=== PATIENT | male | born 1940 | race Two or more races ===

== ENCOUNTER 2024-05-14 06:56 | Outpatient (RCR) | payer OTHER, SELFPAY | END 2024-05-14 23:59 | disposition home or self-care (01) | LOC: RPT 06:56 | PROVIDERS: ATTENDING PHYSICIAN Student in an Organized Health Care Education/Training Program | DX: M48.05 Spinal stenosis, thoracolumbar region (principal) | CPT/HCPCS: 97110; 97162; 97535 ==

== ENCOUNTER 2024-06-17 13:58 | Outpatient (RCR) | payer OTHER, SELFPAY | END 2024-06-17 23:59 | disposition home or self-care (01) | LOC: RPT 13:58 | PROVIDERS: ATTENDING PHYSICIAN Student in an Organized Health Care Education/Training Program | DX: M48.05 Spinal stenosis, thoracolumbar region (principal) | CPT/HCPCS: 97010; 97110 ==

== ENCOUNTER 2024-07-17 12:43 | Outpatient (RCR) | payer OTHER, SELFPAY | END 2024-07-17 23:59 | disposition home or self-care (01) | LOC: RPT 12:43 | PROVIDERS: ATTENDING PHYSICIAN Student in an Organized Health Care Education/Training Program | DX: M48.05 Spinal stenosis, thoracolumbar region (principal) | CPT/HCPCS: 97010; 97110 ==

== ENCOUNTER 2024-07-31 13:41 | Outpatient (RCR) | payer OTHER, SELFPAY | END 2024-07-31 23:59 | disposition home or self-care (01) | LOC: RPT 13:41 | PROVIDERS: ATTENDING PHYSICIAN Student in an Organized Health Care Education/Training Program | DX: M48.05 Spinal stenosis, thoracolumbar region (principal); M62.81 Muscle weakness (generalized); Z73.6 Limitation of activities due to disability | CPT/HCPCS: 97110 ==

== ENCOUNTER 2024-08-03 03:01 | Observation (INO) | payer OTHER, SELFPAY ==
[2024-08-02 21:06] VITALS: BP 124/65; BMI 26.7
[2024-08-02 21:07] VITALS: BP 124/65
[2024-08-02 22:14] VITALS: BP 165/80
[2024-08-02 22:16] LABS: % Basophils 0.4 % (0-2); % Eosinophils 0.9 % (0-6); % Immature Granulocytes 0.2 % (0-0.5); % Lymphocytes 14.7 % (20.5-51.1); % Monocytes 11.6 % (1.7-9.3); % Neutrophils 72.2 % (42.2-75.2); Absolute Eosinophils 0.1 10^3/uL (0-0.7); Absolute Lymphocytes 0.8 10^3/uL (1.2-3.4); Absolute Monocytes 0.6 10^3/uL (0.1-0.6); Hematocrit 36.9 % (39.0-52.0); Hemoglobin 12.5 g/dL (13.0-18.0); Mean Corp Hgb Conc. 33.9 g/dL (33.0-37.0); Mean Corpuscular Hgb 30.3 pg (27.0-31.0); Mean Corpuscular Volume 89.3 fL (80.0-94.0); Mean Platelet Volume 10.3 fL (7.4-10.4); Nucleated Red Blood Cells % 0 % (-); Platelet Count 168 10^3/uL (130-400); Red Blood Cell Count 4.13 10^6/uL (4.70-6.10); Red Cell Dist. Width 13.1 % (11.5-14.5); White Blood Cell Count 5.5 10^3/uL (4.8-10.8)
[2024-08-02 22:17] LABS: Urine Albumin Trace (Neg - Trace); Urine Bilirubin Negative (Negative); Urine Character Clear (Clear); Urine Color Yellow; Urine Glucose 3+ (Negative); Urine Ketone Trace (Negative); Urine Leukocyte Negative (Negative); Urine Nitrite Negative (Negative); Urine Occult Blood Negative (Negative); Urine Specific Gravity 1.015 (<1.030); Urine Urobilinogen 3+ (Neg - 1+)
[2024-08-02 22:27] LABS: COVID-19 Antigen Positive (Negative)
[2024-08-02 22:29] LABS: Lactic Acid 2.5 mmol/L (0.7-2.0)
[2024-08-02 22:32] LABS: ALT (SGPT) 47 U/L (0-50); AST (SGOT) 51 U/L (17-59); Albumin 4.4 g/dl (3.5-5.0); Alkaline Phosphatase 47 U/L (38-126); Blood Urea Nitrogen 10 mg/dl (9-20); Calcium 9.5 mg/dl (8.4-10.2); Carbon Dioxide 25 mmol/L (22-30); Chloride 99 mmol/L (98-107); Estimated Creatinine Clearance 99 ml/min; Glucose 184 mg/dl (70-99); Potassium 4.4 mmol/L (3.5-5.1); Sodium 138 mmol/L (135-145); Total Bilirubin 0.5 mg/dl (0.2-1.3); Total Protein 6.9 g/dl (6.3-8.2); eGFR > 60.00
[2024-08-02] MEDS: TYLENOL 1000 MG PO (22:33)
[2024-08-02] MEDS: NSS 500 IV (22:33)
[2024-08-02 23:00] VITALS: BP 134/70
[2024-08-03] VITALS (9 sets, daily range): BP systolic 103–129; BP diastolic 56–81; BMI 26.2
--- NOTE | 2024-08-03 01:06 | ED.GENMED ---
History of Present Illness
General
Chief Complaint: Weakness
Source: patient and family
Time Seen by Provider: 08/02/24 21:29
History of Present Illness
History of Present Illness:
83-year-old male presents feeling profoundly weak. States he had little bit of scratchy throat last night and today woke up feeling weak and it got worse as the day went on. He could barely get up at home. Did not note a fever but apparently was
recently at a [employer] event. Denies shortness of breath.
Past History
Past History
ED Past Medical History: Arrthythmia (Atrial fibrillation), GERD, HTN and NIDDM
Phy Exam
Physical Exam
Physical Exam:
CONSTITUTIONAL Vital signs reviewed, Patient alert and oriented to person, place and time.
HEAD atraumatic, normocephalic.
EYES eyelids normal to inspection, Extraocular muscles intact, Conjunctiva normal, Sclera normal.
NECK normal range of motion, Trachea midline, no jugular venous distention.
RESP no respiratory distress
BACK No obvious deformities
UPPER EXTREMITY Gross Range of motion normal, gross motor strength normal
LOWER EXTREMITY Gross range of motion normal, Gross motor strength normal
NEURO Speech normal, No focal motor deficits include, Mery coma scale 15, Memory normal, Cranial Nerves intact to screening exam.
SKIN Skin warm, dry, and normal in color.
Course
Orders/Labs/Results
Orders:
Orders
08/02/24 21:14
Electrocardiogram (*1) Urgent
Reason for Study: Other
Other Reason for Exam: Possible Sepsis
Cardiac Monitoring- Treatment ONCE
IV Insert/Care/Rem.- Treatment PRN
O2 Therapy [RESP] Urgent
Titrate/Wean O2 to maintain O2 sat greater than (%): 93
Special Instructions: TO MAINTAIN CONTINUOUS O2 SATS > OR = 93%
Pulse Ox/cont/shift [RESP] Urgent
Quantity: 1
Special Instructions: CONTINUOUS
08/02/24 21:51
Electrocardiogram (*1) Urgent
Reason for Study: Fatigue / Weakness
EKG- Treatment ONCE
Chest [CR Chest - 2 Views ] Urgent
Comment:
Reason For Exam: weakness
08/02/24 21:53
COVID-19 Antigen Urgent
Source: Nasal Swab
Complete Blood Count/With Diff Urgent
Comprehensive Metabolic Panel Urgent
Lactic Acid Urgent
Urinalysis Reflex To Culture Urgent
Date Specimen was Collected: 08/02/24
Time Specimen was Collected: 21:52
Influenza A+B Rapid Molecular Urgent
JOHN Source: Nasal Swab
Specimen Description:
Date Specimen was Collected: 08/02/24
Time Specimen was Collected: 21:52
08/02/24 22:28
0.9% Sodium Chloride 500 ml [Nss] 500 ml IV BOLUS
Acetaminophen [Tylenol] 1,000 mg PO NOW STA
Abnormal Lab Results
08/02/24
21:53
RBC 4.13 L 10^6/uL
(4.70-6.10)
Hgb 12.5 L g/dL
(13.0-18.0)
Hct 36.9 L %
(39.0-52.0)
Absolute Lymphs (auto) 0.8 L 10^3/uL
(1.2-3.4)
Lymphocytes % 14.7 L %
(20.5-51.1)
Monocytes % 11.6 H %
(1.7-9.3)
Creatinine 0.6 L mg/dL
(0.7-1.3)
Glucose 184 H mg/dl
(70-99)
Lactic Acid 2.5 H mmol/L
(0.7-2.0)
Urine Ketones Trace A
(Negative)
Urine Urobilinogen 3+ A
(Neg - 1+)
Urine Glucose 3+ A
(Negative)
SARS-CoV-2 Antigen Positive A
(Negative)
08/02/24 21:53
08/02/24 21:53
Vital Signs
Initial and Last Documented VS:
Initial Vital Signs
Temp Pulse Resp BP Pulse Ox
100.3 F 83 20 124/65 96
08/02/24 21:06 08/02/24 21:06 08/02/24 21:06 08/02/24 21:06 08/02/24 21:06
Last Documented Vital Signs
Temp Pulse Resp BP Pulse Ox
100.3 F 74 22 109/59 93
08/02/24 21:06 08/03/24 01:15 08/03/24 01:15 08/03/24 01:00 08/03/24 01:15
MDM/Problems Addressed
MDM/Problems Addressed:
COVID-19, weakness, lactic acidosis, hyperglycemia
*Radiology
Radiology exam reviewed: all reviewed NAD by ED Provider
*Pulse Oximetry
Patient hypoxic: no
*Critical Care Note
Total Time (30-74mins, 75-104mins- exclusive of procedures): Not Applicable
Data Reviewed
Source: patient, significant other and family
Prescriptions/Medications Considered But Not Given:
Considered antibiotics but COVID-positive
Patient Management
Discussion with other providers: Hospitalist
Escalation/DeEscalation of care consider admission/obs:
Attempted IV fluids and Tylenol and reassessment. However on reassessment the patient is unable to get out of bed due to profound weakness. states that she cannot lift them at home. Given his age, history of medical conditions and profound
weakness, admit.
ED Attending Note
-
Portions of this chart may have been created with voice recognition software.� Occasional wrong word or��sound alike� substitutions may have occurred due to the inherent limitations of voice recognition software.
Discharge Plan
Departure
Patient Disposition: Admit
Date of Disposition: 08/03/24
Time of Disposition: 01:45
Admit to: Med/Surg
Presentation/result/management discussed w/ accepting MD/DO: Hospitalist
Discharge Problem:
COVID-19, Acidosis, lactic
Prescriptions:
No Action
cyanocobalamin (vitamin B-12) [Vitamin B-12] 1,000 mcg Tablet
1,000 mcg PO DAILY
fenofibrate micronized [Lofibra] 134 mg Capsule
134 mg PO DAILY
metoprolol tartrate [Lopressor] 50 mg Tablet
50 mg PO BID
omeprazole [Prilosec] 20 mg Capsule,Delayed Release(Dr/Ec)
20 mg PO DAILY
rosuvastatin [Crestor] 40 mg Tablet
40 mg PO HS
metformin 1,000 mg Tablet Extended Release 24hr
1,000 mg PO BID
Creon 24,000-76,000 -120,000 unit Capsule,Delayed Release(Dr/Ec)
2 cap PO TID
Eliquis 5 mg Tablet
5 mg PO BID
Vitamin D3
vitamin E
Referrals:
UNKNOWN - PT DOES,NOT KNOW [Family Provider] -
Interventions
Interventions:
*Risk Screen - Suicide Last Done: 08/02/24 21:06
*General Assessment Last Done: 08/02/24 21:06
*Neglect/Abuse Screening Last Done: 08/02/24 21:06
*ED COVID-19 Vaccine History Last Done: 08/02/24 21:06
ED- Cardiac Assessment Last Done: 08/02/24 21:31
ED- Neurological Assessment Last Done: 08/02/24 21:31
ED- Pulmonary Assessment Last Done: 08/02/24 21:31
Discharge Date and Time
Print Language: GREEK
--- NOTE | 2024-08-03 01:39 | HPS.HSE ---
Family Physician
-
Family Physician: NOT KNOW UNKNOWN - PT DOES
Chief Complaint
-
Weakness with ambulatory dysfunction.
History of Present Illness
This is a 83-year-old with past medical history of atrial fibrillation, diabetes, hyperlipidemia and hypertension presenting to the emergency department with 1 day of weakness and difficulty getting around.
Patient reports that he started having a nonproductive cough for about 2 days ago. He has had about 2 days of runny nose. Arose with scrachy throat today. Throughout the day he became weaker and now unable to get up. He denies shortness of
breath. He denies chest pain. Unclear whether he was having fevers at home. He specifically denies any vomiting or diarrhea. Had decreased p.o. intake today. Denies any other focal symptoms.
On arrival in the ED he had a low-grade temp of 100.3. Blood pressure was 109/59, pulse 74, oxygen saturation was 90 to 95% on room air. His chest x-ray shows no acute infiltrates. His CBC was unremarkable. Chemistries were was unremarkable.
Lactic acid was 2.5, UA was negative for an acute infection. COVID-19 was positive.
Medical History
Past Medical History
Past Medical History: Reports Arrhythmia (afib), GERD, Hypercholesterolemia and NIDDM
Past Surgical History: Reports None
Social History
Tobacco: Non-smoker
Alcohol: None
Drug: None
Personal:
Living: With Family
Employment: Retired
Family History
Family History: Not pertinent
Allergies / Home Medications
Allergies reflects when Allergies were last updated in [employer].
Home Medications with original date entered in [employer]
Allergy/Medication List:
Allergies
Allergy/AdvReac Type Severity Reaction Status Date / Time
Penicillins Allergy Unknown Unknown Verified 08/02/24 21:09
Sulfa (Sulfonamide Allergy Unknown Unknown Verified 08/02/24 21:09
Antibiotics)
Home Medications
Vitamin D3 08/02/24
apixaban 5 mg tablet (Eliquis) 5 mg PO BID 08/02/24
cyanocobalamin (vitamin B-12) 1,000 mcg tablet (Vitamin B-12) 1,000 mcg PO DAILY 08/02/24
fenofibrate micronized 134 mg capsule 134 mg PO DAILY 08/02/24
ogftjh-hcemqzhr-oecjrnm 24,000-76,000-120,000 unit capsule,delayed rel (Creon) 2 cap PO TID 08/02/24
metformin 1,000 mg tablet,extended release 24hr (osmotic) 1,000 mg PO BID 08/02/24
metoprolol tartrate 50 mg tablet (Lopressor) 50 mg PO BID 08/02/24
omeprazole 20 mg capsule,delayed release 20 mg PO DAILY 08/02/24
rosuvastatin 40 mg tablet (Crestor) 40 mg PO HS 08/02/24
vitamin E 08/02/24
Review of Systems
-
History Source: Patient
Constitutional: Reports Fatigue
EENT: Reports Sore Throat and Runny Nose
Respiratory: Reports No Symptoms
Cardiac: Reports No Symptoms
Abdomen/GI: Reports No Symptoms
: Reports No Symptoms
Musculoskeletal: Reports No Symptoms
Skin: Reports No Symptoms
Neurological: Reports Weakness
Endocrine: Reports No Symptoms
Hematologic/Lymphatic: Reports No Symptoms
Psych: Reports No Symptoms
Physical Exam
Vital Signs
Vital Signs
Temp Pulse Resp BP Pulse Ox
100.3 F 74 22 109/59 93
08/02/24 21:06 08/03/24 01:15 08/03/24 01:15 08/03/24 01:00 08/03/24 01:15
Physical Exam
General: Well Developed, Well Nourished, Comfortable and Fever
HEENT: NormoCephalic, Anicteric, Moist mucous membranes and Atraumatic
Respiratory: Clear
Cardiac: S1/S2 and Regular Rhythm
Breast: Deferred by me
GI: Soft, Non Tender, Non Distended and Normal Bowel Sounds
Rectal: Deferred by Provider
Genito-urinary: Deferred by me
Musculoskeletal: No Clubbing, No Cyanosis and No Edema
Skin: Warm
Neuro: AO x 3
Hematologic/Lymphatic: No Lymphadenopathy
Psych: Calm
Laboratory Results
-
08/02/24 21:53
08/02/24 21:53
Laboratory Results
Lactic Acid 2.5 mmol/L (0.7-2.0) H 08/02/24 21:53
Total Bilirubin 0.5 mg/dl (0.2-1.3) 08/02/24 21:53
AST 51 U/L (17-59) 08/02/24 21:53
ALT 47 U/L (0-50) 08/02/24 21:53
Alkaline Phosphatase 47 U/L (38-126) 08/02/24 21:53
Data Reviewed
-
Diagnostic Radiology: Image Personally Visualized and interpreted
Lab Data: Labs Reviewed by me
Old Records: Reviewed
Impression/Plan
-
IMPRESSION:
83-year-old with history of diabetes, hyperlipidemia, A-fib who presents to the emergency department with weakness and found to be febrile. He has a prodromal episodes of cough runny nose and sore throat prior to coming in. Found to be
COVID-positive in the ED. Labs were otherwise unremarkable except for lactic acid of 2.5. UA was negative for any infection.
PLAN:
1.COVID 19 Infection - Possibly 2 days of symptoms. Low grade temps. Not requiring supplemental oxygen. No GI losses. Unable to ambulate due to weakness.
- admit to med surg
- recommended paxlovid but patient declined and wanted to speak with daughter
- no indication for steroids or remdesivir
- supportive care with antipyretics, antitussives
- gently hydration overnight
- monitor for oxygen requirement changes that might necessitate med changes.
- PT eval
2. AFIB - Currently rate controlled
- continue metoprolol 50 bid
- ac with eliquis q 12
3. DM II
- hold metformin
- sliding scale insulin for now
DVT PPX - On apixaban
Code Status - Full Code
[2024-08-03] MEDS: LR 1000 IV (03:27)
[2024-08-03 07:13] LABS: Glucose - Point of Care 133 mg/dl (70-99)
[2024-08-03 07:30] LABS: Blood Urea Nitrogen 8 mg/dl (9-20); Calcium 9.7 mg/dl (8.4-10.2); Carbon Dioxide 25 mmol/L (22-30); Chloride 100 mmol/L (98-107); Estimated Creatinine Clearance 99 ml/min; Glucose 123 mg/dl (70-99); Magnesium 1.5 mg/dl (1.6-2.3); Sodium 142 mmol/L (135-145); eGFR > 60.00
--- NOTE | 2024-08-03 08:48 | W.PN.HOSP.TC ---
Today's Communication/Plan
-
see PN
Assessment / Plan
Assessment / Plan
83yo M with PMHx of Afib, HTN, HLD, pancreatic insufficiency came with 2 days of cough and progressive weakness, found COVID-19. Next day after admission, patient c/o significant weakness and was mildly confued on assessment
A/P:
#Sepsis (COVID-19 with confusion), viral
follow inflammatory markers
s/p hydration
Chest XR without overt signs of pneumonia, with perisistent cough - will do CT chest
check procalcitonin
follow lactate
continius pulse O2
On admission did not agree for Paxlovid, but with ELiquis - risk would overweight benefit due to interaction
Will consider Molnupiravir vs steroids and remdesivir depensing on CT chest findings
Tylenol, mucinex, Tessalon
Isolation
#Afib, unspecisied
cont Eliquis
telemetry
#Essential HTN
#Pancreatic insufficiency
cont home meds
#Hypomagnesemia
replete and follow
DVT ppx on ELiquis
FUll code
I have spent at least 57min reviewing chart, test results and direct patient care
Anticipated Discharge: > 48 hours
Subjective/Interval History
-
Date of Service: August 03, 2024
Objective Data
-
Labs:
Laboratory Results
08/02/24 08/02/24 08/03/24
21:22 21:53 05:27
WBC Cancelled 5.5
Hgb Cancelled 12.5 L
Hct Cancelled 36.9 L
Plt Count Cancelled 168
Sodium Cancelled 138 142
Potassium Cancelled 4.4 4.0
Chloride Cancelled 99 100
Carbon Dioxide Cancelled 25 25
BUN Cancelled 10 8 L
Creatinine Cancelled 0.6 L 0.6 L
Glucose Cancelled 184 H 123 H
Calcium Cancelled 9.5 9.7
Total Bilirubin Cancelled 0.5
AST Cancelled 51
ALT Cancelled 47
Alkaline Phosphatase Cancelled 47
Vital Signs:
Vital Signs
Temp Pulse Resp BP Pulse Ox
98.4 F 105 18 129/81 96
08/03/24 07:00 08/03/24 07:00 08/03/24 07:00 08/03/24 07:00 08/03/24 07:00
I&O
08/02/24 08/03/24 08/04/24
06:59 06:59 06:59
Intake Total 325 / 325
Output Total 200 / 200
Balance 125 / 125
Review of Systems
-
Unable to obtain full review of systems at this time due to: Acuity
History Source: Patient
Physical Exam
-
General: Respiratory Distress
HEENT: Moist Mucous Membranes
Respiratory: Clear to Auscultation
Cardiac: Regular Rhythm and S1/S2
GI: Soft, Nontender and Nondistended
Genito-urinary: No Costovertebral Tender
Musculoskeletal: No Clubbing, No Cyanosis and No Edema
Neuro: Awake, Alert and Oriented
Psych: Confused
[2024-08-03] MEDS: MAGNESIUM SULFATE 100 IV (09:10)
[2024-08-03] MEDS: VITAMIN B-12 1000 MCG PO (09:12)
[2024-08-03] MEDS: PROTONIX 40 MG PO (09:12)
[2024-08-03] MEDS: ELIQUIS 5 MG PO ×2 (09:13→21:35)
[2024-08-03] MEDS: ZENPEP DELAYED RELEASE CAPSULE 2 CAPSULE PO ×3 (09:15→17:41)
[2024-08-03] MEDS: TRICOR 145 MG PO (09:15)
[2024-08-03] MEDS: MUCINEX 1200 MG PO ×2 (09:16→21:34)
[2024-08-03] MEDS: LOPRESSOR 50 MG PO ×2 (09:16→21:34)
[2024-08-03 09:37] LABS: LDH 182 U/L (120-246)
[2024-08-03 09:42] LABS: Lactic Acid 2.1 mmol/L (0.7-2.0)
[2024-08-03 09:45] LABS: NT-proBNP 417 pg/ml
[2024-08-03 09:50] LABS: Erythrocyte Sed Rate 23 mm/hour (0-20)
[2024-08-03 10:08] LABS: Procalcitonin 0.08 ng/ml (0.0-0.25)
[2024-08-03 10:12] LABS: Ferritin 43.5 ng/ml (17.9-464.0)
[2024-08-03 12:38] LABS: Glucose - Point of Care 175 mg/dl (70-99)
[2024-08-03] MEDS: D5LR 1000 IV (13:11)
[2024-08-03 13:22] LABS: Glycohemoglobin (HgbA1c) 8.5 % (4.0-5.6)
--- NOTE | 2024-08-03 13:32 | CM ---
Patient seen at bedside with Mildred.
CM role explained.
DX: Covid 19 infection.
PMH: AFIB, HTN, pancreatic insufficiency, DM
CT SCAN-1. Clear lungs, without evidence of lobar pneumonia, pleural effusion, or significant pulmonary nodule.
answered questions. stated patient was going to outpatient therapy 2x here for 'back issues'
PLOF: Independent with walker, was not driving.
Await PT eval. PT unable to see patient today as he was weak.
Discussed options with . SNF/HH
PCP: Jesse Pham ([facility])
Pharmacy: [facility]
PLAN: Discharge when medically stable. Await PT eval.
[2024-08-03 14:18] LABS: Venous Blood Gas B.E. 0.3 mmol/L (-4 to +4); Venous Blood Gas HCO3 24.6 mmol/L (22-27); Venous Blood Gas O2 Sat % 90.1 %; Venous Blood Gas pCO2 38 mmHg (35-48); Venous Blood Gas pH 7.42 (7.32-7.43); Venous Blood Gas pO2 58 mmHg (30-50)
--- NOTE | 2024-08-03 14:26 | PTCARENOTE ---
Patient too weak to sit up at side of bed. Patient maintained on bedrest, softcare overlay applied. Patient has no appetite, ate 1/2 banana, tolerating po Liquids-patient is a feed at present due to weakness. Family at bedside.
[2024-08-03] MEDS: MOLNUPIRAVIR (EUA) 800 MG PO ×2 (14:39→21:34)
[2024-08-03 17:36] LABS: Glucose - Point of Care 174 mg/dl (70-99)
[2024-08-03] MEDS: NOVOLOG FLEXPEN-LOW RESISTANCE 1 UNITS SC (17:41)
[2024-08-03 21:26] LABS: Glucose - Point of Care 174 mg/dl (70-99)
[2024-08-03] MEDS: VIBRAMYCIN 100 MG PO (21:35)
[2024-08-03] MEDS: CRESTOR 40 MG PO (21:35)
[2024-08-04] VITALS (8 sets, daily range): BP systolic 108–126; BP diastolic 55–69; PULSE 78
[2024-08-04] MEDS: TYLENOL 650 MG PO ×2 (03:25→18:06)
[2024-08-04] MEDS: D5LR 1000 IV (05:11)
[2024-08-04 06:53] LABS: % Basophils 0.3 % (0-2); % Eosinophils 0.3 % (0-6); % Immature Granulocytes 0.3 % (0-0.5); % Lymphocytes 23.9 % (20.5-51.1); % Monocytes 13.7 % (1.7-9.3); % Neutrophils 61.5 % (42.2-75.2); Absolute Lymphocytes 0.9 10^3/uL (1.2-3.4); Absolute Monocytes 0.5 10^3/uL (0.1-0.6); Absolute Neutrophils 2.3 10^3/uL (1.4-6.5); Hematocrit 34.8 % (39.0-52.0); Hemoglobin 12.1 g/dL (13.0-18.0); Mean Corp Hgb Conc. 34.8 g/dL (33.0-37.0); Mean Corpuscular Hgb 30.3 pg (27.0-31.0); Mean Platelet Volume 10.5 fL (7.4-10.4); Nucleated Red Blood Cells % 0 % (-); Platelet Count 162 10^3/uL (130-400); Red Cell Dist. Width 13.1 % (11.5-14.5); White Blood Cell Count 3.7 10^3/uL (4.8-10.8)
[2024-08-04 07:00] LABS: ALT (SGPT) 53 U/L (0-50); AST (SGOT) 87 U/L (17-59); Alkaline Phosphatase 40 U/L (38-126); Blood Urea Nitrogen 12 mg/dl (9-20); Carbon Dioxide 21 mmol/L (22-30); Chloride 100 mmol/L (98-107); Estimated Creatinine Clearance 99 ml/min; Glucose 175 mg/dl (70-99); Potassium 4.2 mmol/L (3.5-5.1); Sodium 136 mmol/L (135-145); Total Bilirubin 0.6 mg/dl (0.2-1.3); Total Protein 6.7 g/dl (6.3-8.2); eGFR > 60.00
[2024-08-04 07:03] LABS: Glucose - Point of Care 171 mg/dl (70-99)
[2024-08-04] MEDS: ELIQUIS 5 MG PO ×2 (09:10→21:00)
[2024-08-04] MEDS: VITAMIN B-12 1000 MCG PO (09:10)
[2024-08-04] MEDS: VIBRAMYCIN 100 MG PO ×2 (09:10→21:00)
[2024-08-04] MEDS: ZENPEP DELAYED RELEASE CAPSULE 2 CAPSULE PO ×3 (09:10→16:49)
[2024-08-04] MEDS: PROTONIX 40 MG PO (09:10)
[2024-08-04] MEDS: MUCINEX 1200 MG PO ×2 (09:10→21:00)
[2024-08-04] MEDS: TRICOR 145 MG PO (09:11)
[2024-08-04] MEDS: LOPRESSOR 50 MG PO ×2 (09:11→21:00)
[2024-08-04] MEDS: MOLNUPIRAVIR (EUA) 800 MG PO ×2 (09:11→21:00)
[2024-08-04] MEDS: NOVOLOG FLEXPEN-LOW RESISTANCE 1 UNITS SC (09:12)
--- NOTE | 2024-08-04 12:06 | W.PN.HOSP.TC ---
Today's Communication/Plan
-
PT/OT in AM for dispo and d/c
Assessment / Plan
Assessment / Plan
83yo M with PMHx of Afib, HTN, HLD, pancreatic insufficiency came with 2 days of cough and progressive weakness, found COVID-19. Next day after admission, patient c/o significant weakness and was mildly confued on assessment
A/P:
#Sepsis (COVID-19 with confusion), viral
follow inflammatory markers
s/p hydration
No pneumonia on CT, no hypoxia
continues pulse O2
On admission did not agree for Paxlovid, but with Eliquis - risk would overweight benefit due to interaction
Molnupiravir
Tylenol, mucinex, Tessalon
Isolation
#Afib, unspecisied
cont Eliquis
telemetry
#Essential HTN
#Pancreatic insufficiency
cont home meds
#Hypomagnesemia
replete and follow
DVT ppx on ELiquis
FUll code
I have spent at least 37min reviewing chart, test results and direct patient care
Anticipated Discharge: Within 24 hours
Subjective/Interval History
-
Date of Service: August 04, 2024
Objective Data
-
Labs:
Laboratory Results
08/04/24
05:42
WBC 3.7 L
Hgb 12.1 L
Hct 34.8 L
Plt Count 162
Sodium 136
Potassium 4.2
Chloride 100
Carbon Dioxide 21 L
BUN 12
Creatinine 0.6 L
Glucose 175 H
Calcium 9.0
Total Bilirubin 0.6
AST 87 H
ALT 53 H
Alkaline Phosphatase 40
Vital Signs:
Vital Signs
Temp Pulse Resp BP Pulse Ox
97.5 F 74 16 108/60 94
09/17/24 07:00 08/04/24 09:11 08/04/24 07:00 08/04/24 09:11 08/04/24 07:00
I&O
08/03/24 08/04/24 08/05/24
06:59 06:59 06:59
Intake Total 325 / 325 1840 / 1840
Output Total 200 / 200 825 / 825
Balance 125 / 125 1015 / 1015
Review of Systems
-
History Source: Patient
All other systems: Reviewed and negative
Physical Exam
-
General: No Apparent Distress
HEENT: Normocephalic
Respiratory: Clear to Auscultation
Cardiac: Regular Rhythm
GI: Soft, Nontender and Nondistended
Neuro: Awake, Alert, Oriented and AO x 3
Psych: Calm
--- NOTE | 2024-08-04 12:47 | CM ---
Addendum entered by Bernadette Moreno 08/04/24 14:54:
IMM explained & signed. In chart
Original Note:
Met with patient, and daughter Raeann.
Covid + - more alert today, conversing.
Discussed discharge planning & PT recommendations Home PT vs. SNF.
Options reviewed with family.
Patient declines SNF - would like [facility].
tt liaison from [facility] & referral placed in care port.
PLAN: Patient declines SNF, home with visiting nurse.
--- NOTE | 2024-08-04 13:15 | VNURNOTE ---
Home Health Liaison spoke with patient's daughter Raeann to discuss [facility] nurse/therapy, visits, schedule and homebound status. She and patient's spouse were at the bedside and agreeable and understand that visits at home will be 2-3 x per week to
assess and teach medical management.
[facility] contact information provided. Patient and family aware that [facility] will contact them for start of care in 1-2 days after discharge from .
[facility] referral completed in Care Port.
[2024-08-04 13:47] LABS: Glucose - Point of Care 238 mg/dl (70-99)
[2024-08-04] MEDS: NOVOLOG FLEXPEN-LOW RESISTANCE 2 UNITS SC (13:48)
[2024-08-04 16:55] LABS: Glucose - Point of Care 256 mg/dl (70-99)
[2024-08-04] MEDS: NOVOLOG FLEXPEN-LOW RESISTANCE 3 UNITS SC (18:01)
[2024-08-04] MEDS: CRESTOR 40 MG PO (21:23)
[2024-08-04 22:07] LABS: Glucose - Point of Care 222 mg/dl (70-99)
[2024-08-05 03:16] VITALS: BP 106/58
--- NOTE | 2024-08-05 04:02 | DOWNTIME ---
There was a [employer] Downtime on 08/05/2024 from 0100 to 08/05/2024 at 0300. Downtime documentation of patient's care, including medication administrations, has been reconciled in the electronic record per guidelines. Refer to the
patient's paper chart under the miscellaneous tab to see printed paper medication records and downtime forms.
[2024-08-05 07:00] VITALS: BP 118/66
[2024-08-05 07:15] LABS: Glucose - Point of Care 157 mg/dl (70-99)
[2024-08-05] MEDS: ZENPEP DELAYED RELEASE CAPSULE 2 CAPSULE PO ×2 (09:32→12:54)
[2024-08-05] MEDS: ELIQUIS 5 MG PO (09:32)
[2024-08-05] MEDS: PROTONIX 40 MG PO (09:32)
[2024-08-05] MEDS: VITAMIN B-12 1000 MCG PO (09:32)
[2024-08-05] MEDS: VIBRAMYCIN 100 MG PO (09:33)
[2024-08-05] MEDS: MUCINEX 1200 MG PO (09:33)
[2024-08-05] MEDS: TRICOR 145 MG PO (09:33)
[2024-08-05] MEDS: LOPRESSOR 50 MG PO (09:33)
[2024-08-05] MEDS: MOLNUPIRAVIR (EUA) 800 MG PO (09:33)
[2024-08-05] MEDS: NOVOLOG FLEXPEN-LOW RESISTANCE 1 UNITS SC (09:34)
[2024-08-05 11:00] VITALS: BP 105/58
[2024-08-05 11:48] LABS: Glucose - Point of Care 270 mg/dl (70-99)
--- NOTE | 2024-08-05 12:46 | CM ---
Addendum entered by Bernadette Moreno 08/05/24 12:58:
LA form signed. In chart
Original Note:
Met with patient & .
states any new medications prescribed at discharge should be called in to [facility] [address] [place] [address] Nicanor, Connie - [phone] or she states give her script and she will have it filled.
Plan: Home with [facility]
[2024-08-05] MEDS: NOVOLOG FLEXPEN-LOW RESISTANCE 3 UNITS SC (12:54)
--- NOTE | 2024-08-05 13:05 | W.PN.HOSP.TC ---
Today's Communication/Plan
-
DC
Assessment / Plan
Assessment / Plan
83yo M with PMHx of Afib, HTN, HLD, pancreatic insufficiency came with 2 days of cough and progressive weakness, found COVID-19. Next day after admission, patient c/o significant weakness and was mildly confused on assessment, that rapidly resolved
with initiation of Molnupiravir. Patient improved and was able to ambulate in the room. Medically stable for d/c to complete treatment at home. Isolation for additional 7 days advised
A/P:
#Sepsis (COVID-19 with confusion), viral
follow inflammatory markers
s/p hydration
No pneumonia on CT, no hypoxia
continues pulse O2
On admission did not agree for Paxlovid, but with Eliquis - risk would overweight benefit due to interaction
Molnupiravir
Tylenol, mucinex, Tessalon
Isolation
#Afib, unspecified
cont Eliquis
telemetry
#Essential HTN
#Pancreatic insufficiency
cont home meds
#Hypomagnesemia
replete and follow
DVT ppx on Eliquis
FUll code
I have spent at least 37min reviewing chart, test results and direct patient care
Anticipated Discharge: Today
Subjective/Interval History
-
Date of Service: August 05, 2024
Objective Data
-
Vital Signs:
Vital Signs
Temp Pulse Resp BP Pulse Ox
96.7 F L 77 18 105/58 98
08/05/24 11:00 08/05/24 11:00 08/05/24 11:00 08/05/24 11:00 08/05/24 11:00
I&O
08/04/24 08/05/24 08/06/24
06:59 06:59 06:59
Intake Total 1840 / 1840 1200 / 1200
Output Total 825 / 825 1650 / 1650
Balance 1015 / 1015 -450 / -450
Review of Systems
-
History Source: Patient
All other systems: Reviewed and negative
Respiratory: Reports Cough
Physical Exam
-
General: No Apparent Distress
HEENT: Moist Mucous Membranes
Respiratory: Clear to Auscultation
Cardiac: Regular Rhythm
GI: Soft
Genito-urinary: No Costovertebral Tender
Musculoskeletal: No Clubbing, No Cyanosis and No Edema
Skin: Warm
Neuro: Awake, Alert, Oriented and AO x 3
Psych: Calm
[2024-08-05] MEDS: TYLENOL 650 MG PO (13:10)
--- NOTE | 2024-08-05 13:10 | W.DCSUMMARY ---
Discharge Summary
Discharge Data
Date of Admission: 08/03/24
Date of Discharge: 08/05/24
-
Pending Results: No
Hospital Course
83yo M with PMHx of Afib, HTN, HLD, pancreatic insufficiency came with 2 days of cough and progressive weakness, found COVID-19. Next day after admission, patient c/o significant weakness and was mildly confused on assessment, that rapidly resolved
with initiation of Molnupiravir. Patient improved and was able to ambulate in the room. Medically stable for d/c to complete treatment at home. Isolation for additional 7 days advised
I have spent at least 38min discharging the patient
Patient was managed for:
#Sepsis (COVID-19 with confusion), viral
#Afib, unspecified
#Essential HTN
#Pancreatic insufficiency
#Hypomagnesemia
Discharge Plan
-
Patient Disposition: Home (Routine Discharge)
Referrals:
UNKNOWN - PT DOES,NOT KNOW [Family Provider] -
Prescriptions:
New
doxycycline hyclate 100 mg Capsule
100 mg PO Q12 Qty: 10 0RF
guaifenesin 600 mg Tablet Extended Release 12hr
1,200 mg PO Q12 Qty: 30 0RF
Lagevrio (EUA) 200 mg Capsule
800 mg PO BID Qty: 28 0RF
Continued
cyanocobalamin (vitamin B-12) [Vitamin B-12] 1,000 mcg Tablet
1,000 mcg PO DAILY
fenofibrate micronized 134 mg Capsule
134 mg PO DAILY
metoprolol tartrate [Lopressor] 50 mg Tablet
50 mg PO BID
omeprazole 20 mg Capsule,Delayed Release(Dr/Ec)
20 mg PO DAILY
rosuvastatin [Crestor] 40 mg Tablet
40 mg PO HS
metformin 1,000 mg Tablet Extended Release 24hr
1,000 mg PO BID
Creon 24,000-76,000 -120,000 unit Capsule,Delayed Release(Dr/Ec)
2 cap PO TID
Eliquis 5 mg Tablet
5 mg PO BID
Vitamin D3
vitamin E
Discharge Date and Time
Print Language: JORDANIAN
== END 2024-08-05 14:37 | disposition home health service (06) ==
LOC: 2 NORTH 03:01
PROVIDERS: ADMITTING PHYSICIAN Internal Medicine; ATTENDING PHYSICIAN Internal Medicine; EMERGENCY PHYSICIAN Emergency Medicine
DX: A41.89 Other specified sepsis (principal); U07.1 COVID-19; R53.1 Weakness; R09.89 Other specified symptoms and signs involving the circulatory and respiratory systems; I48.91 Unspecified atrial fibrillation; K21.9 Gastro-esophageal reflux disease without esophagitis; G31.9 Degenerative disease of nervous system, unspecified; I10 Essential (primary) hypertension; E87.20 Acidosis, unspecified; R53.83 Other fatigue; E83.42 Hypomagnesemia; R41.0 Disorientation, unspecified; K86.89 Other specified diseases of pancreas; K76.0 Fatty (change of) liver, not elsewhere classified; E11.65 Type 2 diabetes mellitus with hyperglycemia; R26.2 Difficulty in walking, not elsewhere classified; E78.00 Pure hypercholesterolemia, unspecified; R05.9 Cough, unspecified; Z88.0 Allergy status to penicillin; Z88.2 Allergy status to sulfonamides; Z86.73 Personal history of transient ischemic attack (TIA), and cerebral infarction without residual deficits; Z79.01 Long term (current) use of anticoagulants
CPT/HCPCS: 70450; 71046; 71260; 80048; 80053; 81003; 82728; 82805; 82962; 83036; 83605; 83615; 83735; 83880; 84145; 85025; 85652; 86140; 87502; 87811; 93005; 97162; 99285; G0378; Q9967

== ENCOUNTER → 2024-08-26 12:44 | Outpatient (REF) | payer MEDICARE, OTHER, SELFPAY | LOC: HWRCS 12:44 | PROVIDERS: ATTENDING PHYSICIAN Internal Medicine Cardiovascular Disease; FAMILY PHYSICIAN Student in an Organized Health Care Education/Training Program | DX: I25.10 Atherosclerotic heart disease of native coronary artery without angina pectoris (principal) | CPT/HCPCS: 93306 ==

== ENCOUNTER 2024-09-15 13:10 | Outpatient (RCR) | payer MEDICARE, OTHER, SELFPAY | END 2024-09-15 23:59 | disposition home or self-care (01) | LOC: RPT 13:10 | PROVIDERS: ATTENDING PHYSICIAN Student in an Organized Health Care Education/Training Program | DX: M48.05 Spinal stenosis, thoracolumbar region (principal) | CPT/HCPCS: 97110; 97164; 97535 ==

== ENCOUNTER → 2024-09-16 07:48 | Outpatient (REF) | payer MEDICARE, OTHER, SELFPAY | LOC: DHCBC/DCA 07:48 | PROVIDERS: ATTENDING PHYSICIAN Internal Medicine Cardiovascular Disease; FAMILY PHYSICIAN Student in an Organized Health Care Education/Training Program | DX: I25.10 Atherosclerotic heart disease of native coronary artery without angina pectoris (principal) | CPT/HCPCS: 78452; 93017; A9500; J2785 ==

== ENCOUNTER 2024-10-16 12:58 | Outpatient (RCR) | payer MEDICARE, OTHER, SELFPAY | END 2024-10-16 23:59 | disposition home or self-care (01) | LOC: RPT 12:58 | PROVIDERS: ATTENDING PHYSICIAN Student in an Organized Health Care Education/Training Program | DX: M48.05 Spinal stenosis, thoracolumbar region (principal); Z73.6 Limitation of activities due to disability; M62.81 Muscle weakness (generalized) | CPT/HCPCS: 97010; 97014; 97110 ==

== ENCOUNTER 2024-11-16 11:54 | Outpatient (RCR) | payer MEDICARE, OTHER, SELFPAY | END 2024-11-16 23:59 | disposition home or self-care (01) | LOC: RPT 11:54 | PROVIDERS: ATTENDING PHYSICIAN Student in an Organized Health Care Education/Training Program | DX: M48.05 Spinal stenosis, thoracolumbar region (principal); Z73.6 Limitation of activities due to disability; M62.81 Muscle weakness (generalized) | CPT/HCPCS: 97010; 97110; 97140 ==

== ENCOUNTER 2024-12-18 12:28 | Outpatient (RCR) | payer MEDICARE, OTHER, SELFPAY | END 2024-12-18 23:59 | disposition home or self-care (01) | LOC: RPT 12:28 | PROVIDERS: ATTENDING PHYSICIAN Student in an Organized Health Care Education/Training Program | DX: M48.05 Spinal stenosis, thoracolumbar region (principal); Z73.6 Limitation of activities due to disability; M62.81 Muscle weakness (generalized) | CPT/HCPCS: 97110 ==

== ENCOUNTER 2025-08-15 20:29 | Emergency (ER) | payer MEDICARE, OTHER, SELFPAY ==
[2025-08-15 20:39] VITALS: BP 141/79
[2025-08-15 21:33] VITALS: BP 139/80
[2025-08-15 21:36] VITALS: BMI 27.8
--- NOTE | 2025-08-15 21:51 | ED.GENMED ---
History of Present Illness
<Chiqui Hutchison MD - Last Filed: 08/15/25 23:29>
General
Chief Complaint: Back Pain
Source: patient and spouse
Time Seen by Provider: 08/15/25 21:30
History of Present Illness
History of Present Illness:
This patient is an 84-year-old male presents emergency department with complaints of right-sided back pain. Patient denies recent trauma or fall. The pain is nonradiating, and comes and goes in waves. He denies any specific provoking or relieving
factors. He denies associated abdominal pain, upper back pain, chest pain, shortness of breath, fever, chills, numbness, tingling, focal weakness. Patient typically has urinary incontinence which is unchanged he does not have fecal incontinence
and he denies perianal anesthesia. Patient denies radiation of the pain. Patient states pain is typical in quality etc. but just greater intensity tonight. He states that he has a history of spinal stenosis.
Past History
<Chiqui Hutchison MD - Last Filed: 08/15/25 23:29>
Past History
ED Past Medical History: Arrthythmia (Atrial fibrillation), GERD, HTN, NIDDM and Other (Spinal stenosis)
ED Past Surgical History: Orthopedic
Social History
Tobacco: Non-smoker
Alcohol: None
Drug: None
Personal:
Living: with family
Phy Exam
<Chiqui Hutchison MD - Last Filed: 08/15/25 23:29>
Physical Exam
Physical Exam:
GENERAL: Alert , in no apparent distress
EYE: pupils equal and reactive
NECK: Supple, no significant adenopathy, no midline tenderness.
ENT: o/p clr, mmm.
CARDIAC: Regular rate and rhythm .
LUNGS: Clear breath sounds bilaterally, no acute respiratory distress, no wheezes/rales/rhonchi
ABDOMEN: Soft, without focal tenderness, no r/g, no cvat
NEUROLOGICAL: Alert and oriented, no focal neuro deficits, 2+ patellar reflexes, negative SLR, sensory intact to light touch
SKIN: Warm and dry, skin intact.
MUSCULOSKELETAL: No edema, well perfused.
PSYCH: Normal and appropriate interaction.
BACK: no midline ttp, no skin changes
Course
<Chiqui Hutchison MD - Last Filed: 08/15/25 23:29>
Orders/Labs/Results
Orders:
Orders
08/15/25 21:43
Ketorolac [Toradol] 15 mg IM NOW STA
Lidocaine [Lidocaine 4% Patch] 1 patch TOPICAL NOW STA
Apply Lidocaine patch(s) to:: r back
diazePAM [Valium Injection] 2 mg IM NOW STA
08/15/25 22:55
CT Abd/pel Without Iv Or Oral Urgent
Comment:
Reason For Exam: R sided lower back pain
Morphine Sulfate 6 mg IM NOW STA
08/16/25 00:28
Urinalysis Reflex To Culture Urgent
Date Specimen was Collected: 08/16/25
Time Specimen was Collected: 00:27
Urine Microscopic Reflex Cult Urgent
Urine Culture Urgent
JOHN Source: U
Specimen Description:
Date Specimen was Collected: 08/16/25
Time Specimen was Collected: 00:27
Abnormal Lab Results
08/16/25
00:28
Leukocyte Esterase Rfl 1+ A
(Negative)
Vital Signs
Initial and Last Documented VS:
Initial Vital Signs
Temp Pulse Resp BP Pulse Ox
97.7 F 82 16 141/79 97
08/15/25 20:39 08/15/25 20:39 08/15/25 20:39 08/15/25 20:39 08/15/25 20:39
Last Documented Vital Signs
Temp Pulse Resp BP Pulse Ox
97.7 F 64 16 114/65 94
08/15/25 20:39 08/16/25 01:45 08/16/25 01:30 08/16/25 01:00 08/16/25 01:45
<Balbir Marie, - Last Filed: 08/18/25 07:29>
Orders/Labs/Results
Orders:
Orders
08/15/25 21:43
Ketorolac [Toradol] 15 mg IM NOW STA
Lidocaine [Lidocaine 4% Patch] 1 patch TOPICAL NOW STA
Apply Lidocaine patch(s) to:: r back
diazePAM [Valium Injection] 2 mg IM NOW STA
08/15/25 22:55
CT Abd/pel Without Iv Or Oral Urgent
Comment:
Reason For Exam: R sided lower back pain
Morphine Sulfate 6 mg IM NOW STA
08/16/25 00:28
Urinalysis Reflex To Culture Urgent
Date Specimen was Collected: 08/16/25
Time Specimen was Collected: 00:27
Urine Microscopic Reflex Cult Urgent
Urine Culture Urgent
JOHN Source: U
Specimen Description:
Date Specimen was Collected: 08/16/25
Time Specimen was Collected: 00:27
Abnormal Lab Results
08/16/25
00:28
Leukocyte Esterase Rfl 1+ A
(Negative)
Vital Signs
Initial and Last Documented VS:
Initial Vital Signs
Temp Pulse Resp BP Pulse Ox
97.7 F 82 16 141/79 97
08/15/25 20:39 08/15/25 20:39 08/15/25 20:39 08/15/25 20:39 08/15/25 20:39
Last Documented Vital Signs
Temp Pulse Resp BP Pulse Ox
97.7 F 64 16 114/65 94
08/15/25 20:39 08/16/25 01:45 08/16/25 01:30 08/16/25 01:00 08/16/25 01:45
<Chiqui Hutchison MD - Last Filed: 08/15/25 23:29>
*Pulse Oximetry
SaO2: 97
Oxygen Mode of Delivery: Room air
<Balbir Marie DO - Last Filed: 08/18/25 07:29>
*Pulse Oximetry
Patient hypoxic: no
*Critical Care Note
Total Time (30-74mins, 75-104mins- exclusive of procedures): Not Applicable
<Chiqui Hutchison MD - Last Filed: 08/15/25 23:29>
Update Note
Update Note:
Patient presents to the Emergency Department with ____back pain
Number and Complexity of Problems Addressed at the Encounter
� Chronic conditions affecting care:
� Acute Exacerbation and/or Progression of Chronic Illness:
� Differential Diagnosis includes: But not limited to muscular strain, muscle spasm, spinal stenosis related pain, radiculopathy, AAA, renal colic, shingles, etc.
Amount and/or Complexity of Data to be Reviewed and Analyzed
� I performed an independent evaluation of and my interpretation is:
EKG:
CT:
Xrays:
Laboratory Studies:
Other:
� Review of other/old records reveals:
� Clinical information was obtained by an independent historian: who is bedside
� Prescriptions/Medications Considered but not given:
� Further testing considered but not performed:
Risk of Complications and/or Morbidity or Mortality of Patient Management
� Social determinants of health affecting care:
� Discussion with other providers (PCP, Hospitalists, Consultants, etc):
� Escalation of care including admission/observation vs risk of discharge considered: Patient is generally well-appearing, is able to sit up easily in the bed for an exam, no neurofindings noted.
Patient still complaining of pain, no relief with meds here. He is declining IV placement or labs, states he has had bad experiences in the past and is not agreeable to an IV or needlestick care. Will further medicate for pain. CAT scan ordered
to exclude more worrisome although unlikely etiology for his pain.
S/o...check Ct, if unremarkable, continue to treat for pain with goal on d/c with spine/pain fu.
<Balbir Marie, DO - Last Filed: 08/18/25 07:29>
Update Note
Update Note:
Patient presents to the Emergency Department with ____back pain
Number and Complexity of Problems Addressed at the Encounter
� Chronic conditions affecting care:
� Acute Exacerbation and/or Progression of Chronic Illness:
� Differential Diagnosis includes: But not limited to muscular strain, muscle spasm, spinal stenosis related pain, radiculopathy, AAA, renal colic, shingles, etc.
Amount and/or Complexity of Data to be Reviewed and Analyzed
� I performed an independent evaluation of and my interpretation is:
EKG:
CT:
Xrays:
Laboratory Studies:
Other:
� Review of other/old records reveals:
� Clinical information was obtained by an independent historian: who is bedside
� Prescriptions/Medications Considered but not given:
� Further testing considered but not performed:
Risk of Complications and/or Morbidity or Mortality of Patient Management
� Social determinants of health affecting care:
� Discussion with other providers (PCP, Hospitalists, Consultants, etc):
� Escalation of care including admission/observation vs risk of discharge considered: Patient is generally well-appearing, is able to sit up easily in the bed for an exam, no neurofindings noted.
Patient still complaining of pain, no relief with meds here. He is declining IV placement or labs, states he has had bad experiences in the past and is not agreeable to an IV or needlestick care. Will further medicate for pain. CAT scan ordered
to exclude more worrisome although unlikely etiology for his pain.
S/o...check Ct, if unremarkable, continue to treat for pain with goal on d/c with spine/pain fu.
NAME: DOMINIC RIVAS
DATE OF EXAM: 08/15/2025
Patient No: [id number]
Physician: ERIC^CHIQUI^Mahogany
Date of : 1940
Past Medical History (entered by Technologist):
Reason For Exam (entered by Technologist): low back pain
Other Notes (entered by Technologist): no prior ct
Additional Information (per [facility]):
CT abdomen pelvis without contrast
IMPRESSION:
No acute process identified.
Mildly nodular liver suggestive of cirrhosis. Normal gallbladder. No biliary dilatation.
No hydronephrosis or obstructing urinary calculi. No renal stones seen. Bladder is normal. Mild prostatomegaly containing small coarse calcifications.
Decompressed stomach. Sild sigmoid diverticulosis without diverticulitis. Mild to moderate stool present within the colon. No evidence of bowel obstruction or bowel wall thickening. No free fluid or free air.
Moderate vascular calcifications. No AAA.
Lung bases are clear.
Moderate degenerative changes within the spine.
Case finalized on 08/16/25 00:34 EST
Kristina Stephenson M.D.
This report has been electronically signed and verified by the Radiologist whose name is printed above.
1:49 AM: Back into see the patient. He states that the 'flareup' has resolved. His chronic back pain is still there but it is manageable and not above the level that he is typically used to. Patient wishes to be discharged home.
ED Attending Note
<Chiqui Hutchison MD - Last Filed: 08/15/25 23:29>
-
Portions of this chart may have been created with voice recognition software.� Occasional wrong word or��sound alike� substitutions may have occurred due to the inherent limitations of voice recognition software.
Discharge Plan
Departure
Patient Disposition: Home (Routine Discharge)
Date of Disposition: 08/16/25
Time of Disposition: 01:50
Patient with high blood pressure during this ER visit?: Yes
Condition: Good
Discharge Problem:
Back pain
Instructions: Low Back Pain (DC), BLOOD PRESSURE
Prescriptions:
No Action
cyanocobalamin (vitamin B-12) [Vitamin B-12] 1,000 mcg Tablet
1,000 mcg PO DAILY
fenofibrate micronized 134 mg Capsule
134 mg PO DAILY
metoprolol tartrate [Lopressor] 50 mg Tablet
50 mg PO BID
omeprazole 20 mg Capsule,Delayed Release(Dr/Ec)
20 mg PO DAILY
rosuvastatin [Crestor] 40 mg Tablet
40 mg PO HS
metformin 1,000 mg Tablet Extended Release 24hr
1,000 mg PO BID
Creon 24,000-76,000 -120,000 unit Capsule,Delayed Release(Dr/Ec)
2 cap PO TID
Eliquis 5 mg Tablet
5 mg PO BID
Vitamin D3
vitamin E
doxycycline hyclate 100 mg Capsule
100 mg PO Q12 Qty: 10 0RF
guaifenesin 600 mg Tablet Extended Release 12hr
1,200 mg PO Q12 Qty: 30 0RF
Lagevrio (EUA) 200 mg Capsule
800 mg PO BID Qty: 28 0RF
Referrals:
Fortino Mishra MD [Active, Anesthesiology] - Next open appointment
Demarcus Bravo MD [Active, Orthopedics] - Next open appointment
UNKNOWN - PT DOES,NOT KNOW [Family Provider]
Activity Restrictions/Additional Instructions:
IF YOU DEVELOP BOWEL INCONTINENCE, FEVER, WEAKNESS, NUMBNESS, ABDOMINAL PAIN, DIFFICULTY WALKING, INCREASING OR NEW PAIN, OR OTHER WORRISOME SIGNS, PLEASE RETURN TO THE ER IMMEDIATELY. SEE ABOVE RESOURCES FOR FOLLOW-UP.
Interventions
Interventions:
*Risk Screen - Suicide Last Done: 08/15/25 20:39
*General Assessment Last Done: 08/15/25 20:39
*Neglect/Abuse Screening Last Done: 08/15/25 20:39
*ED- Fall Risk Assessment Last Done: 08/15/25 20:39
*ED COVID-19 Vaccine History Last Done: 08/15/25 20:39
*Nursing Disposition Last Done: 08/16/25 01:55
ED-Musculoskeletal Assessment Last Done: 08/15/25 21:37
Discharge Date and Time
Discharge Date/Time: 08/16/25 01:56
Print Language: GHANAIAN
[2025-08-15 22:00] VITALS: BP 145/68
[2025-08-15] MEDS: LIDOCAINE 4% PATCH 1 PATCH TOPICAL (22:03)
[2025-08-15] MEDS: TORADOL 15 MG IM (22:03)
[2025-08-15] MEDS: VALIUM INJECTION 2 MG IM (22:04)
[2025-08-15 23:00] VITALS: BP 127/58
[2025-08-15] MEDS: MORPHINE SULFATE 6 MG IM (23:16)
[2025-08-16 00:14] VITALS: BP 123/72
[2025-08-16 00:35] LABS: Urine Character Clear (Clear)
[2025-08-16 00:50] LABS: Urine Red Blood Cell 0-2 /HPF (0-2); Urine Squamous Cell None seen /LPF (Few)
[2025-08-16 01:00] VITALS: BP 114/65
== END 2025-08-16 01:56 | disposition home or self-care (01) ==
LOC: EMR 20:29
PROVIDERS: Student in an Organized Health Care Education/Training Program; EMERGENCY PHYSICIAN Emergency Medicine
DX: M54.9 Dorsalgia, unspecified (principal); G89.29 Other chronic pain; I70.90 Unspecified atherosclerosis; N40.1 Benign prostatic hyperplasia with lower urinary tract symptoms; N39.498 Other specified urinary incontinence; K57.30 Diverticulosis of large intestine without perforation or abscess without bleeding; E11.9 Type 2 diabetes mellitus without complications; I48.91 Unspecified atrial fibrillation; I10 Essential (primary) hypertension; K21.9 Gastro-esophageal reflux disease without esophagitis; M48.00 Spinal stenosis, site unspecified; Z79.84 Long term (current) use of oral hypoglycemic drugs
CPT/HCPCS: 99284; 96372 ×3; 74176; 81003; 81015; 87077; 87086

== ENCOUNTER → 2025-08-29 11:34 | Outpatient (REF) | payer MEDICARE, OTHER, SELFPAY | LOC: PAVMRI 11:34 | PROVIDERS: ATTENDING PHYSICIAN Student in an Organized Health Care Education/Training Program | DX: M48.05 Spinal stenosis, thoracolumbar region (principal) | CPT/HCPCS: 72148 ==

== ENCOUNTER → 2025-08-30 09:21 | Outpatient (REF) | payer MEDICARE, OTHER, SELFPAY | LOC: HWRAD 09:21 | PROVIDERS: ATTENDING PHYSICIAN Student in an Organized Health Care Education/Training Program | DX: R74.01 Elevation of levels of liver transaminase levels (principal); R93.5 Abnormal findings on diagnostic imaging of other abdominal regions, including retroperitoneum | CPT/HCPCS: 76700 ==

== ENCOUNTER → 2025-10-07 07:30 | Outpatient (REF) | payer MEDICARE, OTHER, SELFPAY | LOC: HWRCS 07:30 | PROVIDERS: ATTENDING PHYSICIAN Internal Medicine Cardiovascular Disease; FAMILY PHYSICIAN Student in an Organized Health Care Education/Training Program | DX: I25.10 Atherosclerotic heart disease of native coronary artery without angina pectoris (principal); Z86.73 Personal history of transient ischemic attack (TIA), and cerebral infarction without residual deficits; I48.0 Paroxysmal atrial fibrillation; R07.89 Other chest pain | CPT/HCPCS: 78452; 93017; A9500; J2785 ==

== ENCOUNTER → 2025-10-13 18:24 | Outpatient (REF) | payer MEDICARE, OTHER, SELFPAY | LOC: PAVMRI 18:24 | PROVIDERS: ATTENDING PHYSICIAN Physician Assistant; FAMILY PHYSICIAN Student in an Organized Health Care Education/Training Program | DX: M54.12 Radiculopathy, cervical region (principal) | CPT/HCPCS: 72141 ==

== ENCOUNTER 2025-10-27 07:18 | Day surgery (SDC) | payer MEDICARE, OTHER, SELFPAY ==
[2025-10-27] VITALS (12 sets, daily range): BP systolic 99–122; BP diastolic 57–87; BMI 27.7
[2025-10-27] MEDS: NSS 270 ML IV (08:30)
[2025-10-27 08:45] LABS: Hematocrit 39.1 % (39.0-52.0); Hemoglobin 13.6 g/dL (13.0-18.0); Mean Corp Hgb Conc. 34.8 g/dL (33.0-37.0); Mean Corpuscular Volume 90.7 fL (80.0-94.0); Platelet Count 150 10^3/uL (130-400); Red Cell Dist. Width 12.8 % (11.5-14.5)
[2025-10-27] MEDS: LOW STRENGTH ASPIRIN 162 MG PO (08:46)
[2025-10-27 08:57] LABS: Glucose - Point of Care 129 mg/dl (70-99)
[2025-10-27] MEDS: NSS 1000 IV (10:05)
--- NOTE | 2025-10-27 10:45 | ITS.CL.CATH ---
[facility] - Catheterization
Cardiac Catheterization
Procedure Report:
LEFT HEART CATHETERIZATION
Date of Procedure: October 27, 2025
Referring: Dr. Gil Rae
PROCEDURES:
1. Left heart catheterization, coronary angiogram.
2. Moderate sedation.
INDICATION: Abnormal stress
ACCESS: Right radial artery, 6Fr. sheath, under US guidance.
HEMODYNAMICS : (mmHg)
AO (s/d) : 109/62
LVEDP : 11
No significant gradient across the aortic valve to suggest aortic stenosis.
CORONARY FINDINGS
Dominance: Right
Left Main Trunk (LMT): Large caliber vessel that gives rise to the LAD and LCx branches and is free of angiographic disease.
Left Anterior Descending Artery (LAD): Medium caliber vessel that gives off 1 major diagonal branch as it courses along the anterior inter-ventricular groove before wrapping around the cardiac apex. There is mild diffuse atherosclerotic plaque in
the LAD. Previously placed diagonal stent is widely patent. 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
Left Circumflex Artery (LCx): Large caliber vessel that gives off 2 major obtuse marginal (OM) branches as it courses along the atrio-ventricular (AV) groove. Proximal portion of OM 2 has a 40% stenosis. There is otherwise mild diffuse
atherosclerotic plaque.
Right Coronary Artery (RCA): Large caliber dominant vessel that gives rise to the posterior descending artery (RPDA) and postero-lateral ventricular (RPLV) branches distally. Ostial RCA has 30% stenosis. Otherwise, there there is mild diffuse
atherosclerotic plaque with moderate tortuosity in the mid vessel
SEDATION: 27 minutes of procedural sedation was utilized. IV Midazolam and IV Fentanyl were administered. An independent medical records director was present to assist with and help manage the patient's level of consciousness and physiologic status.
Closure Device: There were no immediate intra-procedural complications. The sheath was pulled in the cardiac cath technician and a vascular-band applied to the right wrist for radial artery hemostasis using the patent hemostasis technique.
CONCLUSIONS
1. Mild to moderate coronary artery disease. Previously placed diagonal stent is widely patent. 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
2. LVEDP of 11 mmHg
RECOMMENDATIONS
1. Wean radial band per protocol. Monitor right hand perfusion and for bleeding from the radial site following removal of the vascular-band following trans-radial access.
2. Continue aggressive medical therapy and risk factor modification for secondary CAD prevention.
3. Hydrate with normal saline to mitigate the risk of contrast-induced acute kidney injury.
4. Follow-up with Dr. Dean
Copy to: Dr. Gil Rae
Anne Grover MD, FAC, [facility]
== END 2025-10-27 13:00 | disposition home or self-care (01) ==
LOC: CATH 07:18
PROVIDERS: ATTENDING PHYSICIAN Internal Medicine Interventional Cardiology; FAMILY PHYSICIAN Student in an Organized Health Care Education/Training Program; OTHER PHYSICIAN Internal Medicine Cardiovascular Disease
DX: I25.10 Atherosclerotic heart disease of native coronary artery without angina pectoris (principal); I25.2 Old myocardial infarction; E11.9 Type 2 diabetes mellitus without complications; Z79.82 Long term (current) use of aspirin; Z79.84 Long term (current) use of oral hypoglycemic drugs; Z79.01 Long term (current) use of anticoagulants; Z79.899 Other long term (current) drug therapy; Z86.73 Personal history of transient ischemic attack (TIA), and cerebral infarction without residual deficits; I10 Essential (primary) hypertension; I48.0 Paroxysmal atrial fibrillation; Z85.72 Personal history of non-Hodgkin lymphomas; Z87.898 Personal history of other specified conditions; Z87.891 Personal history of nicotine dependence
CPT/HCPCS: 99152; 99153; 82962; 85027; 93458; C1769; Q9967